=== PATIENT | female | born 1975 | race Caucasian/White ===

== ENCOUNTER 2017-08-12 19:09 | Inpatient (IN) | payer MEDICAID ==
[2017-08-12] MEDS: LACTATED RINGER'S 1,000 ML IV (20:05)
[2017-08-12] MEDS ORDERED: DEXTROSE 5%-LR 1,000 ML IV (20:43)
[2017-08-12] MEDS ORDERED: LACTATED RINGER'S 1,000 ML IV (20:43)
[2017-08-12 20:55] LABS: ADD MAN DIFF? NO
[2017-08-12 20:58] LABS: BASOPHILS % 0.2 % (0.0-2.0); EOSINOPHILS # 0.1 10^3/ul (0.0-0.5); EOSINOPHILS % 0.7 % (0.0-7.0); HEMATOCRIT 43.4 % (37.0-47.0); HEMOGLOBIN 14.9 g/dl (12.0-16.0); LYMPHOCYTES # 2.5 10^3/ul (0.8-2.9); LYMPHOCYTES % 24.1 % (15.0-51.0); MEAN CORPUSCULAR HEMOGLOBIN 30.3 pg (29.0-33.0); MEAN CORPUSCULAR HGB CONC 34.3 g/dl (32.0-37.0); MEAN CORPUSCULAR VOLUME 88.4 fl (82.0-101.0); MEAN PLATELET VOLUME 12.4 fl (7.4-10.4); MONOCYTE # 0.7 10^3/ul (0.3-0.9); MONOCYTES % 6.7 % (0.0-11.0); NEUTROPHIL # 6.9 10^3/ul (1.6-7.5); NEUTROPHILS % 67.6 % (39.0-77.0); PLATELET COUNT 203 10^3/UL (140-415); RED BLOOD COUNT 4.91 10^6/ul (4.20-5.40); RED CELL DISTRIBUTION WIDTH 14.1 % (11.5-14.5)
[2017-08-12 20:58] LABS: WHITE BLOOD COUNT 10.2 10^3/ul (4.8-10.8)
[2017-08-12] MEDS ORDERED: METHYLERGONOVINE 0.2 MG INJ IM (21:00)
[2017-08-12] MEDS ORDERED: HYDROCODONE/APAP (5/325) TAB PO (21:00)
[2017-08-12] MEDS ORDERED: BUTORPHANOL 2 MG INJ IV ×2 (21:00)
[2017-08-12] MEDS ORDERED: OXYTOCIN 30 UNITS/LR 500 ML IV (21:00)
[2017-08-12] MEDS ORDERED: LIDOCAINE 1% (MPF) 30 ML INJ INJ (21:00)
[2017-08-12] MEDS ORDERED: MISOPROSTOL 200 MCG TAB PR (21:00)
[2017-08-12 21:30] LABS: INR 0.95; PARTIAL THROMBOPLASTIN TIME 28.5 Sec (25.0-35.0); PROTIME 12.8 Sec (11.9-14.9)
[2017-08-12 21:45] LABS: HEPATITIS B SURFACE ANTIGEN NEGATIVE (NEGATIVE)
[2017-08-12 23:12] LABS: GLUCOSE 74 mg/dl (70-220)
[2017-08-13] MEDS: OXYTOCIN 30 UNITS/LR 500 ML IV ×4 (01:49→17:07)
[2017-08-13] MEDS: LACTATED RINGER'S 1,000 ML IV ×2 (07:49→12:43)
[2017-08-13] MEDS: CARBOPROST 250 MCG INJ IM (14:37)
[2017-08-13] MEDS: IBUPROFEN 600 MG TAB PO ×3 (14:47→23:46)
[2017-08-13] MEDS: BUTORPHANOL 2 MG INJ IV (15:36)
[2017-08-13] MEDS: LACTATED RINGER'S 1,000 ML IV* ×2 (17:33→22:50)
[2017-08-13] MEDS ORDERED: HYDROCODONE/APAP (5/325) TAB PO (18:00)
[2017-08-13] MEDS ORDERED: ZOLPIDEM 5 MG TAB PO (18:00)
[2017-08-13] MEDS ORDERED: MISOPROSTOL 200 MCG TAB PR (18:00)
[2017-08-13] MEDS ORDERED: CARBOPROST 250 MCG INJ IM (18:00)
[2017-08-13] MEDS ORDERED: BENZOCAINE 20% 56 ML SPRAY TOP (18:00)
[2017-08-13] MEDS ORDERED: OXYTOCIN 30 UNITS/LR 500 ML IV (18:00)
[2017-08-13] MEDS ORDERED: METHYLERGONOVINE 0.2 MG INJ IM (18:00)
[2017-08-13] MEDS: CEPHALEXIN 500 MG CAP PO ×2 (18:15→23:46)
[2017-08-13] MEDS: WITCH HAZEL/GLYCERIN PAD PR (18:17)
[2017-08-13] MEDS: LANOLIN 7 GM TUBE TOP (18:18)
[2017-08-13] MEDS: DIBUCAINE 1% 30 GM OINT PR (18:18)
[2017-08-13] MEDS ORDERED: ACCU-CHEK XX (19:35)
[2017-08-13] MEDS: HYDROCODONE/APAP (5/325) TAB PO (19:43)
[2017-08-13] MEDS: MAGNESIUM HYDROXIDE 30ML CUP PO (21:17)
[2017-08-13] MEDS: SENNA/DOCUSATE NA (8.6MG/50MG) TAB PO (21:17)
[2017-08-14] MEDS: CEPHALEXIN 500 MG CAP PO ×4 (05:45→23:30)
[2017-08-14] MEDS: IBUPROFEN 600 MG TAB PO ×4 (05:45→23:30)
[2017-08-14] MEDS: MAGNESIUM HYDROXIDE 30ML CUP PO ×2 (08:45→21:32)
[2017-08-14] MEDS: SENNA/DOCUSATE NA (8.6MG/50MG) TAB PO ×2 (08:45→21:32)
[2017-08-14 08:51] LABS: ADD MAN DIFF? NO
[2017-08-14 08:55] LABS: BASOPHILS % 0.3 % (0.0-2.0); EOSINOPHILS # 0.2 10^3/ul (0.0-0.5); EOSINOPHILS % 1.6 % (0.0-7.0); HEMATOCRIT 31.1 % (37.0-47.0); HEMOGLOBIN 10.6 g/dl (12.0-16.0); LYMPHOCYTES # 2.6 10^3/ul (0.8-2.9); LYMPHOCYTES % 18.6 % (15.0-51.0); MEAN CORPUSCULAR HEMOGLOBIN 30.8 pg (29.0-33.0); MEAN CORPUSCULAR HGB CONC 34.1 g/dl (32.0-37.0); MEAN CORPUSCULAR VOLUME 90.4 fl (82.0-101.0); MEAN PLATELET VOLUME 11.9 fl (7.4-10.4); MONOCYTE # 1.1 10^3/ul (0.3-0.9); MONOCYTES % 7.6 % (0.0-11.0); NEUTROPHILS % 71.2 % (39.0-77.0); PLATELET COUNT 160 10^3/UL (140-415); RED BLOOD COUNT 3.44 10^6/ul (4.20-5.40); RED CELL DISTRIBUTION WIDTH 13.6 % (11.5-14.5)
[2017-08-14] MEDS: INFLUENZA VIRUS VACCINE 0.5 ML (DISPENSING) IM* (11:49)
[2017-08-15] MEDS: IBUPROFEN 600 MG TAB PO ×3 (05:18→18:04)
[2017-08-15] MEDS: CEPHALEXIN 500 MG CAP PO ×3 (05:18→18:04)
[2017-08-15] MEDS: SENNA/DOCUSATE NA (8.6MG/50MG) TAB PO (09:00)
[2017-08-15] MEDS: VARICELLA VACCINE LIVE/PF 1,350 UNIT/0.5 ML ML SC* (09:00)
[2017-08-15] MEDS: MAGNESIUM HYDROXIDE 30ML CUP PO (09:00)
[2017-08-15] MEDS ORDERED: MEASLES,MUMPS,RUBELLA VACCINE INJ SC* (09:00)
[2017-08-15] MEDS: DIPHTH/TET/ACEL PERTUSS (ADULT) 0.5 ML VIAL IM* (17:17)
[2017-08-16] MEDS ORDERED: INFLUENZA VIRUS VACCINE 0.5 ML (DISPENSING) IM* (09:00)
== END 2017-08-15 19:00 | disposition home or self-care (01) | DRG 775 ==
LOC: L-D 19:09 → PP1 08-13 17:13
PROVIDERS: Obstetrics & Gynecology
PROC: 10E0XZZ Delivery of Products of Conception, External Approach (ICD-10-PCS; principal; 2017-08-13)
PROC: 3E033VJ Introduction of Other Hormone into Peripheral Vein, Percutaneous Approach (ICD-10-PCS; 2017-08-13)
DX: O24.429 Gestational diabetes mellitus in childbirth, unspecified control (principal); Z37.0 Single live birth; Z3A.38 38 weeks gestation of pregnancy
CPT/HCPCS: 76815; 76818; 82947; 82962; 85025; 85610; 85730; 86900; 86901; 87340; 90686